=== PATIENT | female | born 1995 | race Caucasian/White ===

== ENCOUNTER 2021-08-16 18:00 | Emergency (ER) | payer OTHER ==
[2021-08-16 18:35] VITALS: BP 125/77; PULSE 103; RESP 20; TEMP 98.5
--- NOTE | 2021-08-16 20:23 | ED ---
General Adult HPI - General Chief complaint: Upper Respiratory Infection Stated complaint: wants covid test Time Seen by Provider: 08/16/21 19:49 Source: patient, RN notes reviewed Mode of arrival: ambulatory Limitations: no limitations - History of Present Illness Initial comments: 25-year-old female presents to the emergency room for wanting a coronavirus test. Patient has she has had symptoms for several days now. States she is coughing and congested. States she is having body aches especially in her back. States she was exposed to coronavirus. Slight shortness of breath, no chest pain. No fevers.Patient has no other complaints at this time including shortness of breath, chest pain, abdominal pain, nausea or vomiting, headache, or visual changes. - Related Data Previous Rx's Medication Instructions Recorded Ibuprofen [Motrin] 600 mg PO Q6HR PRN #40 day 09/26/14 Allergies Allergy/AdvReac Type Severity Reaction Status Date / Time No Known Allergies Allergy Verified 08/16/21 18:35 Review of Systems ROS Statement: Those systems with pertinent positive or pertinent negative responses have been documented in the HPI. ROS Other: All systems not noted in ROS Statement are negative. Past Medical History Past Medical History: No Reported History, COPD Additional Past Medical History / Comment(s): HYDROCEPHALAS History of Any Multi-Drug Resistant Organisms: None Reported Past Surgical History: Cholecystectomy Additional Past Surgical History / Comment(s): SHUNT TO HEAD, EYE SURGERY Past Psychological History: Depression, PTSD Smoking Status: Never smoker Past Alcohol Use History: None Reported Past Drug Use History: None Reported General Exam Limitations: no limitations General appearance: alert, in no apparent distress Head exam: Present: atraumatic Eye exam: Present: normal appearance, PERRL, EOMI. Absent: scleral icterus, conjunctival injection ENT exam: Present: normal exam, mucous membranes moist Neck exam: Present: normal inspection, full ROM. Absent: tenderness Respiratory exam: Present: normal lung sounds bilaterally. Absent: respiratory distress, wheezes Cardiovascular Exam: Present: regular rate, normal rhythm, normal heart sounds GI/Abdominal exam: Present: soft, normal bowel sounds. Absent: distended, tenderness Neurological exam: Present: alert Course Vital Signs 08/16/21 18:32 Temperature 98.5 F Pulse Rate 103 H Respiratory 20 Rate Blood Pressure 125/77 O2 Sat by Pulse 97 Oximetry Medical Decision Making - Medical Decision Making vitals are stable. Patient is well appearing. No respiratory distress. Lungs are clear bilaterally. COVID-19 is positive. I did offer monoclonal antibodies however patient refuses at this time. States she does not feel comfortable and would rather go home. She will follow up with her doctor and return for any worsening symptoms. - Lab Data Lab Results 08/16/21 Range/Units 18:36 Coronavirus (PCR) Detected A (Not Detectd) Disposition Clinical Impression: COVID-19 Disposition: HOME SELF-CARE Condition: Good Instructions (If sedation given, give patient instructions): Coronavirus Disease 2019 (COVID-19) Additional Instructions: Please take Motrin and Tylenol for pain. Take [id number] vitamin C, D, and zinc. Follow-up with primary care. Return for any worsening symptoms Is patient prescribed a controlled substance at d/c from ED?: No Referrals: Dimple Villagran MD [STAFF PHYSICIAN] - 1-2 days Time of Disposition: 20:22
== END 2021-08-16 21:22 | disposition home or self-care (01) ==
LOC: EC 18:00
DX: U07.1 COVID-19 (principal); J44.9 Chronic obstructive pulmonary disease, unspecified; F32.A Depression, unspecified; F43.12 Post-traumatic stress disorder, chronic; Z90.49 Acquired absence of other specified parts of digestive tract
CPT/HCPCS: 87635; 99284

== ENCOUNTER 2021-09-29 03:41 | Inpatient (IN) | payer OTHER ==
--- NOTE | 2021-09-29 04:00 | ED ---
Altered Mental Status HPI - General Source: RN notes reviewed, old records reviewed Mode of arrival: EMS Limitations: no limitations - History of Present Illness MD Complaint: altered mental status, confusion, decreased responsiveness -: unknown Severity: severe Consistency of Symptoms: getting worse, constant Associated Symptoms: other (Unknown) <Paulino Mills - Last Filed: 09/29/21 07:04> <Lukas Rangel - Last Filed: 09/29/21 11:12> - General Stated Complaint: Mental Health - History of Present Illness Initial Comments: This is a 26-year-old female who is not responding to questioning. Patient showed up for work today after missing 2 days for unknown cause patient was not acting appropriately some patient was brought to the emergency department today. Patient continues to respond (Paulino Mills) - Related Data Home Medications Medication Instructions Recorded Confirmed FLUoxetine HCL [PROzac] 20 mg PO DAILY 09/29/21 09/29/21 Allergies Allergy/AdvReac Type Severity Reaction Status Date / Time No Known Allergies Allergy Verified 09/29/21 08:00 Review of Systems ROS Other: All systems not noted in ROS Statement are negative. <Paulino Mills - Last Filed: 09/29/21 07:04> ROS Other: All systems not noted in ROS Statement are negative. <Lukas Rangel - Last Filed: 09/29/21 11:12> ROS Statement: Those systems with pertinent positive or pertinent negative responses have been documented in the HPI. Past Medical History Past Medical History: No Reported History, COPD Additional Past Medical History / Comment(s): HYDROCEPHALAS History of Any Multi-Drug Resistant Organisms: None Reported Past Surgical History: Cholecystectomy Additional Past Surgical History / Comment(s): SHUNT TO HEAD, EYE SURGERY Past Psychological History: Depression, PTSD Smoking Status: Never smoker Past Alcohol Use History: None Reported Past Drug Use History: None Reported <Paulino Mills - Last Filed: 09/29/21 07:04> General Exam Limitations: altered mental status General appearance: alert, in no apparent distress Head exam: Present: atraumatic, normocephalic, normal inspection Eye exam: Present: normal appearance, PERRL, EOMI. Absent: scleral icterus, conjunctival injection, periorbital swelling ENT exam: Present: normal exam, mucous membranes moist Neck exam: Present: normal inspection. Absent: tenderness, meningismus, lymphadenopathy Respiratory exam: Present: normal lung sounds bilaterally. Absent: respiratory distress, wheezes, rales, rhonchi, stridor Cardiovascular Exam: Present: regular rate, normal rhythm, normal heart sounds. Absent: systolic murmur, diastolic murmur, rubs, gallop, clicks GI/Abdominal exam: Present: soft, normal bowel sounds. Absent: distended, tenderness, guarding, rebound, rigid Extremities exam: Present: normal inspection, full ROM, normal capillary refill. Absent: tenderness, pedal edema, joint swelling, calf tenderness Back exam: Present: normal inspection Neurological exam: Present: alert, oriented X3, CN II-XII intact Psychiatric exam: Present: normal affect, normal mood Skin exam: Present: warm, dry, intact, normal color. Absent: rash <Paulino Mills - Last Filed: 09/29/21 07:04> Course <Paulino Mills - Last Filed: 09/29/21 07:04> Vital Signs 09/29/21 04:42 Temperature 98.3 F Pulse Rate 99 Respiratory 20 Rate Blood Pressure 145/103 O2 Sat by Pulse 100 Oximetry - Reevaluation(s) Reevaluation #1: 09/29/21 04:18 Medical record is reviewed (Paulino Mills) Reevaluation #2: 09/29/21 07:05 medical clear for psychiatric evaluation (Paulino Mills) Medical Decision Making - Lab Data Result diagrams: 09/29/21 04:59 09/29/21 04:59 - Radiology Data Radiology results: report reviewed (CT brain is negative for acute disease), image reviewed <Paulino Mills - Last Filed: 09/29/21 07:04> - Lab Data Result diagrams: 09/29/21 04:59 09/29/21 04:59 <Lukas Rangel - Last Filed: 09/29/21 11:12> - Medical Decision Making Patient was seen by mental health services with plans for admission (Lukas Rangel) - Lab Data Lab Results 09/29/21 09/29/21 09/29/21 Range/Units 04:59 04:59 07:02 WBC 8.3 (3.8-10.6) k/uL RBC 5.02 (3.80-5.40) m/uL Hgb 14.9 (11.4-16.0) gm/dL Hct 45.9 (34.0-46.0) % MCV 91.5 (80.0-100.0) fL MCH 29.8 (25.0-35.0) pg MCHC 32.5 (31.0-37.0) g/dL RDW 14.8 (11.5-15.5) % Plt Count 270 (150-450) k/uL MPV 9.6 Neutrophils % 68 % Lymphocytes % 26 % Monocytes % 4 % Eosinophils % 0 % Basophils % 0 % Neutrophils # 5.7 (1.3-7.7) k/uL Lymphocytes # 2.2 (1.0-4.8) k/uL Monocytes # 0.4 (0-1.0) k/uL Eosinophils # 0.0 (0-0.7) k/uL Basophils # 0.0 (0-0.2) k/uL Sodium 138 (137-145) mmol/L Potassium 4.0 (3.5-5.1) mmol/L Chloride 103 (98-107) mmol/L Carbon Dioxide 19 L (22-30) mmol/L Anion Gap 16 mmol/L BUN 15 (7-17) mg/dL Creatinine 0.68 (0.52-1.04) mg/dL Est GFR (CKD-EPI)AfAm >90 (>60 ml/min/1.73 sqM) Est GFR (CKD-EPI)NonAf >90 (>60 ml/min/1.73 sqM) Glucose 96 (74-99) mg/dL Calcium 10.2 (8.4-10.2) mg/dL Urine Color Yellow Urine Appearance Cloudy H (Clear) Urine pH 6.0 (5.0-8.0) Ur Specific [place] 1.032 (1.001-1.035) Urine Protein 1+ H (Negative) Urine Glucose (UA) Negative (Negative) Urine Ketones 3+ H (Negative) Urine Blood Negative (Negative) Urine Nitrite Negative (Negative) Urine Bilirubin Negative (Negative) Urine Urobilinogen 2.0 (<2.0) mg/dL Ur Leukocyte Esterase Negative (Negative) Urine RBC 2 (0-5) /hpf Urine WBC 3 (0-5) /hpf Ur Squamous Epith Cells 2 (0-4) /hpf Calcium Oxalate Crystal Rare H (None) /hpf Amorphous Sediment Rare H (None) /hpf Urine Mucus Many H (None) /hpf Urine HCG, Qual (Not Detectd) Salicylates <1.0 mg/dL Urine Opiates Screen Not Detected (NotDetected) Ur Oxycodone Screen Not Detected (NotDetected) Urine Methadone Screen Not Detected (NotDetected) Ur Propoxyphene Screen Not Detected (NotDetected) Acetaminophen <10.0 ug/mL Ur Barbiturates Screen Not Detected (NotDetected) U Tricyclic Antidepress Not Detected (NotDetected) Ur Phencyclidine Scrn Not Detected (NotDetected) Ur Amphetamines Screen Not Detected (NotDetected) U Methamphetamines Scrn Not Detected (NotDetected) U Benzodiazepines Scrn Not Detected (NotDetected) Urine Cocaine Screen Not Detected (NotDetected) U Marijuana (THC) Screen Detected H (NotDetected) Serum Alcohol <10 mg/dL Coronavirus (PCR) (Not Detectd) 09/29/21 09/29/21 Range/Units 07:02 09:45 WBC (3.8-10.6) k/uL RBC (3.80-5.40) m/uL Hgb (11.4-16.0) gm/dL Hct (34.0-46.0) % MCV (80.0-100.0) fL MCH (25.0-35.0) pg MCHC (31.0-37.0) g/dL RDW (11.5-15.5) % Plt Count (150-450) k/uL MPV Neutrophils % % Lymphocytes % % Monocytes % % Eosinophils % % Basophils % % Neutrophils # (1.3-7.7) k/uL Lymphocytes # (1.0-4.8) k/uL Monocytes # (0-1.0) k/uL Eosinophils # (0-0.7) k/uL Basophils # (0-0.2) k/uL Sodium (137-145) mmol/L Potassium (3.5-5.1) mmol/L Chloride (98-107) mmol/L Carbon Dioxide (22-30) mmol/L Anion Gap mmol/L BUN (7-17) mg/dL Creatinine (0.52-1.04) mg/dL Est GFR (CKD-EPI)AfAm (>60 ml/min/1.73 sqM) Est GFR (CKD-EPI)NonAf (>60 ml/min/1.73 sqM) Glucose (74-99) mg/dL Calcium (8.4-10.2) mg/dL Urine Color Urine Appearance (Clear) Urine pH (5.0-8.0) Ur Specific [place] (1.001-1.035) Urine Protein (Negative) Urine Glucose (UA) (Negative) Urine Ketones (Negative) Urine Blood (Negative) Urine Nitrite (Negative) Urine Bilirubin (Negative) Urine Urobilinogen (<2.0) mg/dL Ur Leukocyte Esterase (Negative) Urine RBC (0-5) /hpf Urine WBC (0-5) /hpf Ur Squamous Epith Cells (0-4) /hpf Calcium Oxalate Crystal (None) /hpf Amorphous Sediment (None) /hpf Urine Mucus (None) /hpf Urine HCG, Qual Not Detected (Not Detectd) Salicylates mg/dL Urine Opiates Screen (NotDetected) Ur Oxycodone Screen (NotDetected) Urine Methadone Screen (NotDetected) Ur Propoxyphene Screen (NotDetected) Acetaminophen ug/mL Ur Barbiturates Screen (NotDetected) U Tricyclic Antidepress (NotDetected) Ur Phencyclidine Scrn (NotDetected) Ur Amphetamines Screen (NotDetected) U Methamphetamines Scrn (NotDetected) U Benzodiazepines Scrn (NotDetected) Urine Cocaine Screen (NotDetected) U Marijuana (THC) Screen (NotDetected) Serum Alcohol mg/dL Coronavirus (PCR) Not Detected (Not Detectd) Disposition <Paulino Mills - Last Filed: 09/29/21 07:04> Is patient prescribed a controlled substance at d/c from ED?: No Decision Time: 11:12 <Lukas Rangel - Last Filed: 09/29/21 11:12> Clinical Impression: Depression Disposition: TRANSFER TO PSYCH HOSP/UNIT Referrals: None,Stated [Primary Care Provider] - 1-2 days
--- NOTE | 2021-09-29 04:38 | CT ---
EXAMINATION TYPE: CT brain wo con DATE OF EXAM: 09/29/2021 COMPARISON: 09/17/2014 HISTORY: ams CT DLP: 1094.4 mGycm Automated exposure control for dose reduction was used. Ventricles of normal size. There is no mass effect or midline shift. There is no sign of intracranial hemorrhage. There is ventricular shunt catheter is in the frontal horn left lateral ventricle and al so in the posterior aspect of the left sylvian fissure. There is no hydrocephalus. Calvarium is intac t. IMPRESSION: Shunt catheter is in same position as old exam. No hydrocephalus. No acute intracranial abnormality.
[2021-09-29 06:23] LABS: Basophils % (A) 0 %; Eosinophils % (A) 0 %; HCT 45.9 % (34.0-46.0); HGB 14.9 gm/dL (11.4-16.0); Lymphocytes # (A) 2.2 k/uL (1.0-4.8); Lymphocytes % (A) 26 %; MCH 29.8 pg (25.0-35.0); MCHC 32.5 g/dL (31.0-37.0); MCV 91.5 fL (80.0-100.0); Mean Platelet Volume 9.6; Monocytes # (A) 0.4 k/uL (0-1.0); Monocytes % (A) 4 %; Neutrophils # (A) 5.7 k/uL (1.3-7.7); Neutrophils % (A) 68 %; Platelet Count 270 k/uL (150-450); RBC 5.02 m/uL (3.80-5.40); RDW 14.8 % (11.5-15.5); WBC 8.3 k/uL (3.8-10.6)
[2021-09-29 06:46] LABS: Acetaminophen <10.0 ug/mL; African American GFR (CKD) >90 (>60 ml/min/1.73 sqM); Alcohol <10 mg/dL; Anion Gap 16 mmol/L; Blood Urea Nitrogen 15 mg/dL (7-17); Calcium 10.2 mg/dL (8.4-10.2); Carbon Dioxide 19 mmol/L (22-30); Chloride 103 mmol/L (98-107); Glucose 96 mg/dL (74-99); Non-African American GFR(CKD) >90 (>60 ml/min/1.73 sqM); Salicylate <1.0 mg/dL; Sodium 138 mmol/L (137-145)
[2021-09-29 08:29] LABS: Amorphous Sediment,Urine Rare /hpf; Appearance,Urine Cloudy (Clear); Bilirubin,Urine Negative (Negative); Blood,Urine Negative (Negative); Calcium Oxalate Crystals,Urine Rare /hpf; Color,Urine Yellow; Glucose,Urine (UA) Negative (Negative); Ketones,Urine 3+ (Negative); Leukocyte Esterase,Urine Negative (Negative); Mucus,Urine Many /hpf; Nitrite,Urine Negative (Negative); Protein,Urine 1+ (Negative); RBC,Urine 2 /hpf (0-5); Specific Gravity,Urine 1.032 (1.001-1.035); Squamous Epithelial Cell,Urine 2 /hpf (0-4); WBC,Urine 3 /hpf (0-5)
[2021-09-29 08:32] LABS: Amphetamine Screen,Urine Not Detected (NotDetected); Barbiturate Screen,Urine Not Detected (NotDetected); Benzodiazepines Screen,Urine Not Detected (NotDetected); Cocaine Screen,Urine Not Detected (NotDetected); Methadone Screen, Urine Not Detected (NotDetected); Opiate Screen,Urine Not Detected (NotDetected); Oxycodone Screen, Urine Not Detected (NotDetected); Phencyclidine Screen,Urine Not Detected (NotDetected); Tricyclic Antidepressant,Urine Not Detected (NotDetected); Urn Cannabinoid Scrn Detected (NotDetected)
[2021-09-29] MEDS ORDERED: MAG HYDROX/AL HYDROX/SIMETH 30 ML CUP PO PRN (12:18)
[2021-09-29] MEDS ORDERED: ACETAMINOPHEN TAB 325 MG TAB PO PRN (12:18)
[2021-09-29] MEDS ORDERED: MAGNESIUM HYDROXIDE 2,400 MG/10 ML CUP PO PRN (12:18)
[2021-09-29] MEDS: NICOTINE 14MG/24HR PATCH TRANSDERM SCH (13:25)
--- NOTE | 2021-09-29 14:38 | P.HP ---
Psychiatric H&P - . H&P Date: 09/29/21 History & Physical: Allergies Allergy/AdvReac Type Severity Reaction Status Date / Time No Known Allergies Allergy Verified 09/29/21 08:00 Vital Signs Temp 98.3 F 09/29/21 04:42 Pulse 99 09/29/21 04:42 Resp 20 09/29/21 04:42 BP 145/103 09/29/21 04:42 Pulse Ox 100 09/29/21 04:42 Intake & Output 09/28/21 09/29/21 09/29/21 18:59 06:59 18:59 Weight 102.058 kg Laboratory Last Values WBC 8.3 k/uL (3.8-10.6) 09/29/21 04:59 RBC 5.02 m/uL (3.80-5.40) 09/29/21 04:59 Hgb 14.9 gm/dL (11.4-16.0) 09/29/21 04:59 Hct 45.9 % (34.0-46.0) 09/29/21 04:59 MCV 91.5 fL (80.0-100.0) 09/29/21 04:59 MCH 29.8 pg (25.0-35.0) 09/29/21 04:59 MCHC 32.5 g/dL (31.0-37.0) 09/29/21 04:59 RDW 14.8 % (11.5-15.5) 09/29/21 04:59 Plt Count 270 k/uL (150-450) 09/29/21 04:59 MPV 9.6 09/29/21 04:59 Neutrophils % 68 % 09/29/21 04:59 Lymphocytes % 26 % 09/29/21 04:59 Monocytes % 4 % 09/29/21 04:59 Eosinophils % 0 % 09/29/21 04:59 Basophils % 0 % 09/29/21 04:59 Neutrophils # 5.7 k/uL (1.3-7.7) 09/29/21 04:59 Lymphocytes # 2.2 k/uL (1.0-4.8) 09/29/21 04:59 Monocytes # 0.4 k/uL (0-1.0) 09/29/21 04:59 Eosinophils # 0.0 k/uL (0-0.7) 09/29/21 04:59 Basophils # 0.0 k/uL (0-0.2) 09/29/21 04:59 Sodium 138 mmol/L (137-145) 09/29/21 04:59 Potassium 4.0 mmol/L (3.5-5.1) 09/29/21 04:59 Chloride 103 mmol/L (98-107) 09/29/21 04:59 Carbon Dioxide 19 mmol/L (22-30) L 09/29/21 04:59 Anion Gap 16 mmol/L 09/29/21 04:59 BUN 15 mg/dL (7-17) 09/29/21 04:59 Creatinine 0.68 mg/dL (0.52-1.04) 09/29/21 04:59 Est GFR (CKD-EPI)AfAm >90 (>60 ml/min/1.73 sqM) 09/29/21 04:59 Est GFR (CKD-EPI)NonAf >90 (>60 ml/min/1.73 sqM) 09/29/21 04:59 Glucose 96 mg/dL (74-99) 09/29/21 04:59 Calcium 10.2 mg/dL (8.4-10.2) 09/29/21 04:59 Urine Color Yellow 09/29/21 07:02 Urine Appearance Cloudy (Clear) H 09/29/21 07:02 Urine pH 6.0 (5.0-8.0) 09/29/21 07:02 Ur Specific [place] 1.032 (1.001-1.035) 09/29/21 07:02 Urine Protein 1+ (Negative) H 09/29/21 07:02 Urine Glucose (UA) Negative (Negative) 09/29/21 07:02 Urine Ketones 3+ (Negative) H 09/29/21 07:02 Urine Blood Negative (Negative) 09/29/21 07:02 Urine Nitrite Negative (Negative) 09/29/21 07:02 Urine Bilirubin Negative (Negative) 09/29/21 07:02 Urine Urobilinogen 2.0 mg/dL (<2.0) 09/29/21 07:02 Ur Leukocyte Esterase Negative (Negative) 09/29/21 07:02 Urine RBC 2 /hpf (0-5) 09/29/21 07:02 Urine WBC 3 /hpf (0-5) 09/29/21 07:02 Ur Squamous Epith Cells 2 /hpf (0-4) 09/29/21 07:02 Calcium Oxalate Crystal Rare /hpf (None) H 09/29/21 07:02 Amorphous Sediment Rare /hpf (None) H 09/29/21 07:02 Urine Mucus Many /hpf (None) H 09/29/21 07:02 Urine HCG, Qual Not Detected (Not Detectd) 09/29/21 07:02 Salicylates <1.0 mg/dL 09/29/21 04:59 Urine Opiates Screen Not Detected (NotDetected) 09/29/21 07:02 Ur Oxycodone Screen Not Detected (NotDetected) 09/29/21 07:02 Urine Methadone Screen Not Detected (NotDetected) 09/29/21 07:02 Ur Propoxyphene Screen Not Detected (NotDetected) 09/29/21 07:02 Acetaminophen <10.0 ug/mL 09/29/21 04:59 Ur Barbiturates Screen Not Detected (NotDetected) 09/29/21 07:02 U Tricyclic Antidepress Not Detected (NotDetected) 09/29/21 07:02 Ur Phencyclidine Scrn Not Detected (NotDetected) 09/29/21 07:02 Ur Amphetamines Screen Not Detected (NotDetected) 09/29/21 07:02 U Methamphetamines Scrn Not Detected (NotDetected) 09/29/21 07:02 U Benzodiazepines Scrn Not Detected (NotDetected) 09/29/21 07:02 Urine Cocaine Screen Not Detected (NotDetected) 09/29/21 07:02 U Marijuana (THC) Screen Detected (NotDetected) H 09/29/21 07:02 Serum Alcohol <10 mg/dL 09/29/21 04:59 Coronavirus (PCR) Not Detected (Not Detectd) 09/29/21 09:45 09/29/21 14:25 Psychiatric evaluation: This is a psychiatric assessment Mireya Page who is a 26-year-old female with history of depressive disorder Patient is a vague historian and responses were delayed with long pauses in between Patient also at times is completely inaudible with whispering her answers Patient was unable to status to why she is here or any triggering factors She admits that she has had some suicidal thoughts but would not elaborate Patient states that she currently lives alone with her cats 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 Patient denies any substance use although her drug screen was positive for cannabis She would not elaborate on any specific stressors When asked about any suicidal plans patient continues to stare at the floor and continues to repeat I I I but would not complete the sentence Past history: Patient admits that she has had some outpatient counseling and has also been seeing a PCP She states that she was started on Prozac about 2 months ago She denies that there has been any improvement Past about suicidal ideations in the past patient admits to multiple When asked about her ways of hurting herself patient spontaneously responded 'which time' Personal and social history: Several attempts were made to have the patient elaborate on any family history Patient continues to stare at the floor and would not respond from time to time She states that she currently lives alone with her cats and works as a geronimo at [employer] Unable to give any specifics on her family history or her support system Medical history: Is significant for hydrocephalus 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 and that she had a shunt placed at about age 3 She denies that she has that any complications Mental status examination: Reveals a young somewhat obese female who currently appears in no acute physical distress Patient is alert and oriented to time place and person Speech was barely audible but appropriate Thought processes are goal-directed sequential and logical Patient admits that she does talk and low voices and low tones sometimes Affect seemed to be euthymic with appropriate laughter although patient tries to keep a serious demeanor from time to time and rather comes across as manipulative Patient comes across as somewhat passive-aggressive and manipulative? And needs to be considered in the differential Patient otherwise seems to exhibit some thought blocking Patient's formal and operational judgment are impaired Insight into her problem is impaired Diagnostic impression: Major depressive disorder unspecified Rule out major neurocognitive disorder unspecified Rule out personality disorder with borderline passive-aggressive traits Cannabis use disorder unspecified Plan: Patient is an appropriate candidate for further evaluation and treatment on the inpatient unit until safety is established 2 will continue on suicide precautions 3 patient will also participate in on the olivo activities and individual and group therapy 4 patient also agreed to take Wellbutrin SR 150 mg twice a day to start with and we will titrate to response 5 discussed effects and side effects 6 approximately the stay would be 5-7 days 7 medical workup and supervision as per the portfolio administrator's discretion Reed King M.D. 09/29/2021
[2021-09-29] MEDS: buPROPion SR 150 MG TABLET.ER PO SCH (21:15)
[2021-09-30] MEDS: buPROPion SR 150 MG TABLET.ER PO SCH (08:00)
[2021-09-30] MEDS: NICOTINE 14MG/24HR PATCH TRANSDERM SCH (08:00)
[2021-09-30 09:45] LABS: Chol/HDL Ratio 2.92 Ratio; LDL Cholesterol,Calculated 58.9 mg/dL (0.0-131.0)
[2021-09-30] MEDS ORDERED: LORazepam 1 MG TAB PO PRN (11:59)
[2021-09-30] MEDS ORDERED: HALOPERIDOL LACTATE 5 MG/ML 1 ML VIAL IM PRN (11:59)
[2021-09-30] MEDS ORDERED: LORazepam 2 MG/ML INJ IM PRN (11:59)
[2021-09-30] MEDS ORDERED: haloperidoL 5 MG TAB PO PRN (11:59)
--- NOTE | 2021-09-30 12:15 | P.PN ---
Progress Note - Text Progress Note Date: 09/30/21 Interval History: Patient was seen wandering the hallways and was directable and agreeable to adela olivera with ad writer in the office. she wasjust leaving group and had several papers in her hands. She was fairly flat in her affect and was slow to speak. She wasfairly vague about why she came into the hospitaland states that "I was supposed go into work but I came in her instead". She states that she has been having mood swings and finding it difficult to get out of bed. She is endorsing a chronic history of mood isntability and some depression. She states that she does have anxiety today. She was somewhat gaurded during the inteview. She asked severeal medication questions which were answered. She states that her sleep is "on/off". she is denying any acute neurological problems with gait, tremors or visual changes. she was alert and oriented X3. At this time patient denies any suicidal or homical ideations, intent or plan. Patient denies any visual hallucinations and denies any paranoia or delusions. she is endorsing AH which have started for the past few days, commanding her to do different things. Mental Status Exam: General Appearance: Patient appears to be overweight, stated age is alert, directable, and vague/gaurded. Behavior: Patient is calmly seated without any agitated behavior. Speech: Patient's speech is fluent and nonpressured. concrete. soft tone, Mood/Affect: Mood is depressed and anxious, affect is congruent and constricted. Suicidality/Homicidality: Patient denies having any suicidal or homicidal ideation intent or plan. Perceptions: Patient denies any visual hallucinations and admits to auditory hallucinations, command in nature. Though content/process: gaurded/vague. poverty of content. concrete Memory and concentration: AOX3, slow to process. Judgment and insight:poor Assessment Mood disorder unspecified Rule out major neurocognitive disorder unspecified Likely borderline personality disorder Cannabis use disorder unspecified nicotine dependence Plan: -Patient continues to meet criteria for inpatient psychiatric admission for symptom stabilization and safety. Patient has signed adult voluntary form and was placed in patient's chart. -Medications: abilify 2.5 mg daily for mood stabilization/psychosis. trazodone 25 mg qhs for insomnia/mood -When necessary Ativan and Haldol for agitation/aggression. -NRT - nicotine patch -SW on board for discharge planning. Encouraged the patient to participate in milieu.
[2021-09-30] MEDS: ARIPiprazole 5 MG TAB PO SCH (13:52)
[2021-09-30] MEDS: traZODone HCL 50 MG TAB PO SCH (20:50)
--- NOTE | 2021-09-30 22:08 | P.CONS ---
History of Present Illness - History of Present Illness This is a pleasant 26 years old female for erratic behavior. She was off work for 2 days and then she was showing up but not talking to staff at her work site and therefore she was received to the hospital for psychiatric symptoms and possible psychosis and admitted to the mental health unit. Patient denies any other physical complaints, no chest pain or dyspnea. No abdominal pain or nausea vomiting. No headache or weakness or numbness. She has some loose stools about twice per day but no other GI symptoms. She states she has a shunt in her head since but however she denies any symptoms and she does not follow up with her neurologist as an outpatient. However neurologist has been consulted by psychiatric service. However her labs including CBC, INR, BMP and liver enzymes are unremarkable. Urinalysis is not showing evidence of infection, Urine drug screen is positive for marijuana Preoperative serum test but patient declined state in that she does not engage with [employer] for a long time now Review of Systems Review of systems CONSTITUTIONAL: No fever, no malaise, no fatigue. HEENT: No recent visual problems or hearing problems. Denied any sore throat. CARDIOVASCULAR: No orthopnea, PND, no palpitations, no syncope. PULMONARY: No shortness of breath, no cough, no hemoptysis. GASTROINTESTINAL: No diarrhea, no nausea, no vomiting, no abdominal pain. Normoactive bowel sounds. NEUROLOGICAL: No headaches, no weakness, no numbness. HEMATOLOGICAL: Denies any bleeding or petechiae. GENITOURINARY: Denies any burning micturition, frequency, or urgency. MUSCULOSKELETAL/RHEUMATOLOGICAL: Denies any joint pain, swelling, or any muscle pain. ENDOCRINE: Denies any polyuria or polydipsia. Past Medical History Past Medical History: No Reported History, COPD Additional Past Medical History / Comment(s): HYDROCEPHALAS History of Any Multi-Drug Resistant Organisms: None Reported Past Surgical History: Cholecystectomy Additional Past Surgical History / Comment(s): SHUNT TO HEAD, EYE SURGERY Past Psychological History: Depression, PTSD Smoking Status: Never smoker Past Alcohol Use History: None Reported Past Drug Use History: None Reported Medications and Allergies Home Medications Medication Instructions Recorded Confirmed Type FLUoxetine HCL [PROzac] 20 mg PO DAILY 09/29/21 09/29/21 History Allergies Allergy/AdvReac Type Severity Reaction Status Date / Time No Known Allergies Allergy Verified 09/29/21 15:00 Physical Exam Vitals: Intake and Output 09/29/21 09/30/21 09/30/21 22:59 06:59 14:59 Other: Weight 102.058 kg Results CBC & Chem 7: 09/29/21 04:59 09/29/21 04:59 Labs: Abnormal Lab Results - Last 24 Hours (Table) 09/29/21 Range/Units 04:59 HDL Cholesterol 39.70 L (40.00-60.00) mg/dL Assessment and Plan Assessment: -Psychosis and other sac illnesses, management as per sec primary team -Substance abuse with marijuana, patient counseled to quit -Morbid obesity with BMI of 41.2 recommend weight loss. -History of hydronephrosis and shunt since as per patient, neurology service has been consulted. The patient currently is asymptomatic Patient is low risk for DVT as she is mobile. No need for GI symptoms prophylaxis We recommend patient follow up with PCP in one week after discharge, patient was instructed with the same Thank you for consulting us, we will see the patient on as needed basis.
[2021-10-01] MEDS: ARIPiprazole 5 MG TAB PO SCH (07:47)
[2021-10-01] MEDS: NICOTINE 14MG/24HR PATCH TRANSDERM SCH (07:47)
--- NOTE | 2021-10-01 09:59 | P.PN ---
Progress Note - Text Progress Note Date: 10/01/21 Interval History: Patient was seen wandering the hallways and was directable and agreeable to sp brigidok with poem writer in the office. She appears to continue to have a flat affect and speaking slowly. She claims that today she only feels "a bit better" compared to yesterday. She states that she was speaking to her sister over the phone yesterday and believed that she was hearing voices through the phone that wasn't supposed to be there. She also claims that she was hearing voices last night. She states that she is hesitant about taking trazodone as "my ex- boyfriend was taking mad". She continues to speak negatively about her future and continues to endorse hopelessness and worthlessness. She states that she has a fair appetite. She is agreeable to continue on with medications and treatment. She states that she has been going to some groups however was fairly vague on what she is learning. She continues to be guarded. she was alert and oriented X3. At this time patient denies any suicidal or homical ideations, intent or plan. Patient denies any visual hallucinations and denies any paranoia or delusions. Mental Status Exam: General Appearance: Patient appears to be overweight, stated age is alert, directable, and vague/gaurded. Behavior: Patient is calmly seated without any agitated behavior. Speech: Patient's speech is fluent and nonpressured. concrete. soft tone, Mood/Affect: Mood is depressed, improving mildly, affect is congruent and constricted. Suicidality/Homicidality: Patient denies having any suicidal or homicidal ideation intent or plan. Perceptions: Patient denies any visual hallucinations and admits to auditory hallucinations, command in nature, improving mildly. Though content/process: gaurded/vague. poverty of content. concrete Memory and concentration: AOX3, slow to process. Judgment and insight: poor, improving mildly Assessment Mood disorder unspecified, rule out bipolar vs depressive disorder Rule out major neurocognitive disorder unspecified Likely borderline personality disorder Cannabis use disorder unspecified nicotine dependence Plan: -Patient continues to meet criteria for inpatient psychiatric admission for symptom stabilization and safety. Patient has signed adult voluntary form and was placed in patient's chart. -Medications: increased abilify 5 mg daily for mood stabilization/psychosis. trazodone 25 mg qhs for insomnia/mood. -When necessary Ativan and Haldol for agitation/aggression. -NRT - nicotine patch -SW on board for discharge planning. Encouraged the patient to participate in milieu.
[2021-10-01] MEDS ORDERED: ARIPiprazole 5 MG TAB PO ONE (10:00)
[2021-10-01] MEDS: traZODone HCL 50 MG TAB PO SCH (21:47)
[2021-10-02] MEDS: NICOTINE 14MG/24HR PATCH TRANSDERM SCH (08:30)
[2021-10-02] MEDS ORDERED: ARIPiprazole 5 MG TAB PO SCH (09:00)
--- NOTE | 2021-10-02 09:09 | P.PN ---
Progress Note - Text Progress Note Date: 10/02/21 Interval History: Patient was seen sitting at the side of her bed. She claims that she feels she needs to stay in the hospital longer as she is not "feeling right". She claims that she is a "danger to herself". She states that her mood is "confused and scared". wondering if she thinks she has bipolar disorder. not hearing any voices today. Claims that she still has thoughts of wanting to hurt herself however has no plan at this time. slow to respond. She states that she has a fair appetite. she claims that she is sleeping fairly at night time. She is agreeable to continue on with medications and treatment. She states that she has been going to some groups however was fairly vague on what she is learning. She continues to be guarded. she was alert and oriented X3. At this time patient denies any suicidal or homical ideations, intent or plan. Patient denies any visual hallucinations and denies any paranoia or delusions. Mental Status Exam: General Appearance: Patient appears to be overweight, stated age is alert, directable, and vague/gaurded. Behavior: Patient is calmly seated without any agitated behavior. Speech: Patient's speech is fluent and nonpressured. concrete. soft tone, Mood/Affect: Mood is "confused and scared", improving mildly, affect is congruent and constricted. Suicidality/Homicidality: Patient denies having any suicidal or homicidal ideation intent or plan. Perceptions: Patient denies any visual hallucinations and admits to auditory hallucinations, command in nature, improving mildly. Though content/process: gaurded/vague. poverty of content. concrete Memory and concentration: AOX3, slow to process and respond Judgment and insight: poor, improving mildly Assessment Mood disorder unspecified, rule out bipolar vs depressive disorder Rule out major neurocognitive disorder unspecified Likely borderline personality disorder Cannabis use disorder unspecified nicotine dependence Plan: -Patient continues to meet criteria for inpatient psychiatric admission for symptom stabilization and safety. Patient has signed adult voluntary form and w as placed in patient's chart. -Medications: increased abilify 7.5 mg daily for mood stabilization/psychosis. trazodone 25 mg qhs for insomnia/mood. added cymbalta 30 mg daily for mood/anxiety -When necessary Ativan and Haldol for agitation/aggression. -NRT - nicotine patch -SW on board for discharge planning. Encouraged the patient to participate in milieu. will attempt to call back sister Aminta as she called requesting to speak with handbook writer.
[2021-10-02] MEDS: DULoxetine HCL 30 MG CAPSULE.DR PO SCH (09:32)
[2021-10-02] MEDS: traZODone HCL 50 MG TAB PO SCH (20:43)
[2021-10-03] MEDS: DULoxetine HCL 30 MG CAPSULE.DR PO SCH ×2 (08:27→20:52)
[2021-10-03] MEDS: NICOTINE 14MG/24HR PATCH TRANSDERM SCH (08:27)
[2021-10-03] MEDS ORDERED: ARIPiprazole 5 MG TAB PO SCH (09:00)
--- NOTE | 2021-10-03 10:41 | P.PN ---
Progress Note - Text Progress Note Date: 10/03/21 Interval History: Patient was seen sitting in on group today and was agreeable to speak to development writer in the office. She continues to have a delay in her thought process however appear to have an improvement in her affect. She states that she feels medications have been helping her with anxiety and mood gradually. She states that her suicidal thoughts have been improving mildly however when asked about it, she states that "sometimes I think about going outside and freezing to ". She was fairly has attended one speaking about her discharge planning and possibly living with her sister. She agrees that she is not able to care for herself at home. She claims that she is not hearing voices today however is hearing "my own thoughts about people". Claims that she still has thoughts of wanting to hurt herself however has no plan at this time. slow to respond. She states that she has a fair appetite. she claims that she slept better last night. She is agreeable to continue on with medications and treatment. She states that she has been going to some groups however was fairly vague on what she is learning. she was alert and oriented X3. At this time patient denies any current suicidal or homical ideations, intent or plan. Patient denies any visual hallucinations and denies any paranoia or delusions. Mental Status Exam: General Appearance: Patient appears to be overweight, stated age is alert, difficult to redirect, and vague/gaurded. Behavior: Patient is calmly seated without any agitated behavior. Speech: Patient's speech is fluent and nonpressured. concrete. soft tone, Mood/Affect: Mood is "a bit better", improving mildly, affect is congruent and constricted. Suicidality/Homicidality: Patient denies having any current suicidal or homicidal ideation intent or plan. did mention passive thoughts of "freezing to " outside. Perceptions: Patient denies any visual hallucinations and denies any AH Though content/process: gaurded/vague. poverty of content. concrete. delayed thought process Memory and concentration: AOX3, slow to process and respond Judgment and insight: chronically poor, improving mildly Assessment Mood disorder unspecified, rule out bipolar vs depressive disorder Rule out major neurocognitive disorder Borderline personality disorder Cannabis use disorder unspecified nicotine dependence Plan: -Patient continues to meet criteria for inpatient psychiatric admission for symptom stabilization and safety. Patient has signed adult voluntary form and was placed in patient's chart. -Medications: increased abilify 10 mg daily for mood stabilization/psychosis. trazodone 25 mg qhs for insomnia/mood. increased cymbalta 30 mg bid for moo d/anxiety -When necessary Ativan and Haldol for agitation/aggression. -NRT - nicotine patch -SW on board for discharge planning. Encouraged the patient to participate in milieu. development writer spoke with patients sister Aminta over the phone who will give further updates on patients condition and claims that she is interested in filing for gaurdianship and will also allow her to live [facility] in [place] upon discharge.
[2021-10-03] MEDS: traZODone HCL 50 MG TAB PO SCH (20:52)
[2021-10-04 06:28] VITALS: BP 132/69; PULSE 90; RESP 14; TEMP 97.1
[2021-10-04] MEDS: NICOTINE 14MG/24HR PATCH TRANSDERM SCH (07:57)
[2021-10-04] MEDS: DULoxetine HCL 30 MG CAPSULE.DR PO SCH (07:57)
[2021-10-04] MEDS ORDERED: ARIPiprazole 10 MG TAB PO SCH (09:00)
[2021-10-04] MEDS ORDERED: DULoxetine HCL 60 MG CAPSULE.DR PO SCH (09:00)
--- NOTE | 2021-10-04 10:27 | P.DS ---
Providers Date of admission: 09/29/21 11:17 Expected date of discharge: 10/04/21 Attending physician: Rayo Cordova MD Consults: 09/29/21 12:18 Consult Physician Routine Consulting Provider: Chel Sheth Consult Reason/Comments: H and P Do you want consulting provider notified?: Yes Primary care physician: Stated None - Discharge Diagnosis(es) (1) Unspecified mood [affective] disorder Current Visit: Yes Status: Acute Priority: High (2) Borderline personality disorder Current Visit: Yes Status: Acute Priority: High (3) Cannabis abuse Current Visit: Yes Status: Acute Priority: Medium (4) Nicotine dependence Current Visit: Yes Status: Acute Priority: Low Hospital Course: Admission HPI: Admission note was completed by Dr gomez "This is a psychiatric assessment Mireya Page who is a 26-year-old female with history of depressive disorder. Patient is a vague historian and responses were delayed with long pauses in between. Patient also at times is completely inaudible with whispering her answers. Patient was unable to status to why she is here or any triggering factors. She admits that she has had some suicidal thoughts but would not elaborate. Patient states that she currently lives alone with her cats. 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 Patient denies any substance use although her drug screen was positive for cannabis. She would not elaborate on any specific stressors. When asked about any suicidal plans patient continues to stare at the floor and continues to repeat I I I but would not complete the sentence" Hospital course: Upon admission to the unit patient was directable and agreeable to commence treatment and signed adult voluntary form. Patient got along well with other patients on the unit and followed unit protocol. Patient was compliant with the medications and denied any side effects throughout hospital course. Patient was started on Abilify 10 mg daily for mood stabilization/psychosis, trazodone 25 mg daily at bedtime for insomnia/mood, Cymbalta 60 mg daily for mood/anxiety. Patient spoke of her stressors and engaged in therapy both group and individual. Patient was also seen by medical team for history and physical exam. Throughout the course of the hospitalization patient gradually improved with regards to mood, anxiety, sleep and returned back to their baseline level of functioning. On the day of discharge patient denied any suicidal or homicidal ideations intent or plan denied any auditory or visual hallucinations. Patient endorsed wanting to live for her future and her health. The patient denied any access to guns or weapons. Patient denied any paranoia and did not endorse any delusions. Patient does not have a significant history of substance abuse and was counseled on abstaining from all substances including alcohol and marijuana. Patient was also counseled on the medications and need for regular compliance and was encouraged to follow-up with their outpatient appointment for mental health and also for primary care. Prior to discharge a family meeting will be arranged by manager social responsibility to answer any questions and ensure safety upon discharge. Policy Cancellation Clerk also spoke with patient's sister to address any concerns and spoke about treatment options and diagnosis. Sister claims that patient can live with her upon discharge in [place]. Patient is agreeable to this. Mental status exam: General Appearance: Patient appears to be obese, stated age is alert, directable, and cooperative. Patient is in no acute distress and has improved hygiene and grooming Behavior: Patient is calmly seated without any agitated behavior. Speech: Patient's speech is fluent and nonpressured. Mood/Affect: Patient reports their mood is "better", affect is congruent and constricted Suicidality/Homicidality: Patient denies having any suicidal or homicidal ideation intent or plan. Perceptions: Patient denies any auditory or visual hallucinations. Though content/process: There is no evidence of any delusional thought content and thought process is linear and goal-directed. Memory and concentration: AOX3, grossly intact for the purposes of this session. Can spell "WORLD" backwards correctly. Judgment and insight: chronically poor, however has improved with guarded prognosis Impression: Mood disorder unspecified, rule out bipolar versus depressive disorder Rule out major neurocognitive disorder Borderline personality disorder Cannabis use disorder Nicotine dependence Plan: -Continue with discharge today as patient has improved and stabilized psychiatrically and is not currently an imminent threat to himself and/or others. Patient will remain at chronically elevated risk for harm to self and/or others due to his impulsivity and chronically poor insight and judgment along with hx of self harming behvr. -Continue medications: Abilify 10 mg daily for mood stabilization/psychosis, trazodone 25 mg daily at bedtime for insomnia/mood, Cymbalta 60 mg daily for mood/anxiety. -Patient was counseled on the need for medication compliance and appropriate follow-up at mental health and also primary care for medical issues. Patient verbalized understanding and agreed. -Social work to arrange for and conduct family meeting to ensure safety upon discharge and answer any questions/concerns. Social work also to arrange for patients follow up appointments for psychiatric care along with follow up with primary care provider. -Patient counseled on abstaining from recreational drugs and marijuana and alcohol. Was informed/educated on the adverse effects on their physical and mental health. Patient verbally agreed and understood. -Patient was instructed to return to the hospital or seek immediate medical care if their psychiatric or medical symptoms do worsen or reoccur. Allergies Allergy/AdvReac Type Severity Reaction Status Date / Time No Known Allergies Allergy Verified 09/29/21 15:00 Laboratory Results WBC 8.3 k/uL (3.8-10.6) 09/29/21 04:59 RBC 5.02 m/uL (3.80-5.40) 09/29/21 04:59 Hgb 14.9 gm/dL (11.4-16.0) 09/29/21 04:59 Hct 45.9 % (34.0-46.0) 09/29/21 04:59 MCV 91.5 fL (80.0-100.0) 09/29/21 04:59 MCH 29.8 pg (25.0-35.0) 09/29/21 04:59 MCHC 32.5 g/dL (31.0-37.0) 09/29/21 04:59 RDW 14.8 % (11.5-15.5) 09/29/21 04:59 Plt Count 270 k/uL (150-450) 09/29/21 04:59 MPV 9.6 09/29/21 04:59 Neutrophils % 68 % 09/29/21 04:59 Lymphocytes % 26 % 09/29/21 04:59 Monocytes % 4 % 09/29/21 04:59 Eosinophils % 0 % 09/29/21 04:59 Basophils % 0 % 09/29/21 04:59 Neutrophils # 5.7 k/uL (1.3-7.7) 09/29/21 04:59 Lymphocytes # 2.2 k/uL (1.0-4.8) 09/29/21 04:59 Monocytes # 0.4 k/uL (0-1.0) 09/29/21 04:59 Eosinophils # 0.0 k/uL (0-0.7) 09/29/21 04:59 Basophils # 0.0 k/uL (0-0.2) 09/29/21 04:59 Sodium 138 mmol/L (137-145) 09/29/21 04:59 Potassium 4.0 mmol/L (3.5-5.1) 09/29/21 04:59 Chloride 103 mmol/L (98-107) 09/29/21 04:59 Carbon Dioxide 19 mmol/L (22-30) L 09/29/21 04:59 Anion Gap 16 mmol/L 09/29/21 04:59 BUN 15 mg/dL (7-17) 09/29/21 04:59 Creatinine 0.68 mg/dL (0.52-1.04) 09/29/21 04:59 Est GFR (CKD-EPI)AfAm >90 (>60 ml/min/1.73 sqM) 09/29/21 04:59 Est GFR (CKD-EPI)NonAf >90 (>60 ml/min/1.73 sqM) 09/29/21 04:59 Glucose 96 mg/dL (74-99) 09/29/21 04:[address] Glu mg/dL 114 09/29/21 04:59 Hemoglobin A1c 5.6 % (4.0-6.0) 09/29/21 04:59 Calcium 10.2 mg/dL (8.4-10.2) 09/29/21 04:59 Triglycerides 87.00 mg/dL (0.00-149.00) 09/29/21 04:59 Cholesterol 116.00 mg/dL (0.00-200.00) 09/29/21 04:59 LDL Cholesterol, Calc 58.9 mg/dL (0.0-131.0) 09/29/21 04:59 VLDL Cholesterol, Calc 17.40 mg/dL (5.00-40.00) 09/29/21 04:59 HDL Cholesterol 39.70 mg/dL (40.00-60.00) L 09/29/21 04:59 Cholesterol/HDL Ratio 2.92 Ratio 09/29/21 04:59 TSH 0.851 mIU/L (0.465-4.680) 09/29/21 04:59 Urine Color Yellow 09/29/21 07:02 Urine Appearance Cloudy (Clear) H 09/29/21 07:02 Urine pH 6.0 (5.0-8.0) 09/29/21 07:02 Ur Specific [place] 1.032 (1.001-1.035) 09/29/21 07:02 Urine Protein 1+ (Negative) H 09/29/21 07:02 Urine Glucose (UA) Negative (Negative) 09/29/21 07:02 Urine Ketones 3+ (Negative) H 09/29/21 07:02 Urine Blood Negative (Negative) 09/29/21 07:02 Urine Nitrite Negative (Negative) 09/29/21 07:02 Urine Bilirubin Negative (Negative) 09/29/21 07:02 Urine Urobilinogen 2.0 mg/dL (<2.0) 09/29/21 07:02 Ur Leukocyte Esterase Negative (Negative) 09/29/21 07:02 Urine RBC 2 /hpf (0-5) 09/29/21 07:02 Urine WBC 3 /hpf (0-5) 09/29/21 07:02 Ur Squamous Epith Cells 2 /hpf (0-4) 09/29/21 07:02 Calcium Oxalate Crystal Rare /hpf (None) H 09/29/21 07:02 Amorphous Sediment Rare /hpf (None) H 09/29/21 07:02 Urine Mucus Many /hpf (None) H 09/29/21 07:02 Urine HCG, Qual Not Detected (Not Detectd) 09/29/21 07:02 Salicylates <1.0 mg/dL 09/29/21 04:59 Urine Opiates Screen Not Detected (NotDetected) 09/29/21 07:02 Ur Oxycodone Screen Not Detected (NotDetected) 09/29/21 07:02 Urine Methadone Screen Not Detected (NotDetected) 09/29/21 07:02 Ur Propoxyphene Screen Not Detected (NotDetected) 09/29/21 07:02 Acetaminophen <10.0 ug/mL 09/29/21 04:59 Ur Barbiturates Screen Not Detected (NotDetected) 09/29/21 07:02 U Tricyclic Antidepress Not Detected (NotDetected) 09/29/21 07:02 Ur Phencyclidine Scrn Not Detected (NotDetected) 09/29/21 07:02 Ur Amphetamines Screen Not Detected (NotDetected) 09/29/21 07:02 U Methamphetamines Scrn Not Detected (NotDetected) 09/29/21 07:02 U Benzodiazepines Scrn Not Detected (NotDetected) 09/29/21 07:02 Urine Cocaine Screen Not Detected (NotDetected) 09/29/21 07:02 U Marijuana (THC) Screen Detected (NotDetected) H 09/29/21 07:02 Serum Alcohol <10 mg/dL 09/29/21 04:59 Coronavirus (PCR) Not Detected (Not Detectd) 09/29/21 09:45 Vital Signs Temp 97.1 F L 10/04/21 06:08 Pulse 90 10/04/21 06:08 Resp 14 10/04/21 06:08 BP 132/69 10/04/21 06:08 Pulse Ox 96 10/04/21 06:08 Patient Condition at Discharge: Stable Plan - Discharge Summary Discharge Rx Participant: No New Discharge Prescriptions: New ARIPiprazole [Abilify] 10 mg PO DAILY 30 Days tab traZODone HCL [Desyrel] 25 mg PO HS 30 Days tab DULoxetine HCL [Cymbalta] 60 mg PO DAILY 30 Days capsule Nicotine 14Mg/24Hr Patch [Habitrol] 1 patch TRANSDERM DAILY 14 Days patch Discontinued FLUoxetine HCL [PROzac] 20 mg PO DAILY Discharge Medication List ARIPiprazole [Abilify] 10 mg PO DAILY 30 Days tab 10/04/21 [Rx] DULoxetine HCL [Cymbalta] 60 mg PO DAILY 30 Days capsule 10/04/21 [Rx] Nicotine 14Mg/24Hr Patch [Habitrol] 1 patch TRANSDERM DAILY 14 Days patch 10/04/21 [Rx] traZODone HCL [Desyrel] 25 mg PO HS 30 Days tab 10/04/21 [Rx] Follow up Appointment(s)/Referral(s): [facility] [Other] - 10/10/21 3:00 pm None,Stated [Primary Care Provider] - 1-2 days Activity/Diet/Wound Care/Special Instructions: Activity and diet as tolerated. Avoid the use of street drugs and alcohol. Take all medications as prescribed. When you are in need of refills on your medications please contact your medical provider and/or outpatient psychiatrist to have this done. Please go to scheduled outpatient appointment for aftercare treatment. If symptoms return or become worse, call the crisis line at and/or go to the nearest emergency room for evaluation Discharge Disposition: HOME SELF-CARE
== END 2021-10-04 17:28 | disposition home or self-care (01) | DRG 881 ==
LOC: EC 03:41 → 3MHU 11:17
PROVIDERS: ADMIT Psychiatry & Neurology Psychiatry; ATTEND Psychiatry & Neurology Psychiatry
DX: F32.9 Major depressive disorder, single episode, unspecified (principal); Z68.41 Body mass index [BMI] 40.0-44.9, adult; E66.01 Morbid (severe) obesity due to excess calories; F17.200 Nicotine dependence, unspecified, uncomplicated; F43.10 Post-traumatic stress disorder, unspecified; F60.3 Borderline personality disorder; G47.00 Insomnia, unspecified; F12.10 Cannabis abuse, uncomplicated; Z20.822 Contact with and (suspected) exposure to COVID-19; Z79.899 Other long term (current) drug therapy
CPT/HCPCS: 36415; 70450; 80048; 80061; 80143; 80179; 80306; 80320; 81001; 81025; 83036; 84443; 85025; 87635; 99285